=== PATIENT | female | born 1990 | race Two or more races ===

== ENCOUNTER 2025-02-14 09:45 | Emergency (ER) | payer MEDICAID ==
[~2025-02-14] VITALS: Ht 167.6 cm; Wt 72.0 kg
[~2025-02-14 09:45] MED LIST: LEVO-65 MT; METR-167 MT
[2025-02-14 09:51] VITALS: BP 141/89; PULSE 91; RESP 16; TEMP 98.6; O2SAT 99
== END 2025-02-14 11:56 | disposition left against medical advice (07) ==
LOC: ER 09:45
DX: M25.511 Pain in right shoulder (principal); M54.9 Dorsalgia, unspecified
CPT/HCPCS: 99281